=== PATIENT | male | born 1985 | race Caucasian/White ===

== ENCOUNTER 2021-11-19 | Outpatient (REF) | payer OTHER, SELFPAY ==
--- NOTE | ~2021-11-19 | XR_ITS ---
EXAMINATION: XR WRIST, LEFT CLINICAL INFORMATION: M25.532 - Pain in left wrist COMPARISON: 11/03/2021 TECHNIQUE: PA, lateral, and oblique views of the left wrist. FINDINGS: Again seen is a comminuted intra-articular fracture of the distal radius with apex dorsal angulation of the distal radial articular surface by approximately 15 degrees, unchanged. Mild soft tissue swelling. Transverse fracture at the base of the ulnar styloid is unchanged with mild displacement of the styloid fragment. No new fractures. Carpal bones are intact. Bone mineralization is normal. Joint spaces are well-preserved. XR/XR wrist LT min 3V IMPRESSION: Unchanged appearance of the distal radius and ulnar fractures. No new fracture.
== END 2021-11-19 00:01 | disposition home or self-care (01) ==
LOC: HO.HOSX
PROVIDERS: Visit Provider Physician Assistant
DX: S52.502A Unspecified fracture of the lower end of left radius, initial encounter for closed fracture (principal); V00.131A Fall from skateboard, initial encounter; Y93.51 Activity, roller skating (inline) and skateboarding; Y92.9 Unspecified place or not applicable; Y99.9 Unspecified external cause status
CPT/HCPCS: 29085; 73110

== ENCOUNTER 2021-12-17 08:03 | Outpatient (REF) | payer OTHER, SELFPAY ==
--- NOTE | ~2021-12-17 | XR_ITS ---
EXAMINATION: XR WRIST, LEFT CLINICAL INFORMATION: Fracture COMPARISON: Previous x-ray November 2021 TECHNIQUE: PA, lateral, and oblique views of the left wrist. FINDINGS: There is a healing fracture of the left distal radius with increased bony callus formation. Alignment appears unchanged. There is a minimally displaced ulnar styloid fracture that appears unchanged. Carpal bones are otherwise normal. There is soft tissue swelling. XR/XR wrist LT min 3V IMPRESSION: Healing left distal radius fracture.
== END 2021-12-17 08:04 | disposition home or self-care (01) ==
LOC: HO.HOSX 08:03
PROVIDERS: Visit Provider Physician Assistant
DX: M25.532 Pain in left wrist (principal)
CPT/HCPCS: 73110

== ENCOUNTER 2022-07-26 08:00 | Outpatient (RCR) | payer BC, SELFPAY ==
--- NOTE | 2022-08-02 08:23 | MHC.OT.DC ---
[address] [phone] F: [phone] Occupational Therapy Discharge Note Patient Name: nAkit Whitehead Provider: Sung Healy Diagnosis: Left wrist s/p ORIF Date of Surgery: 06/11/22 Date of Evaluation: 07/10/22 Date of Discharge: 08/02/22 Treatments to Date: 2 Cancellations to Date: 1 No Shows to Date: Discharge Status: Independent with HEP Patient Elected to Stop Discharge Summary: AROM WFL. Pt has been educated on precautions and progression of ther ex and functional activities. Pt reported discomfort only at the end of the day. Today he canceled , leaving a message he was all set Electronically Signed By: Jess Ballard OT CHT CLT Reviewed/agree with student documentation: Therapist: Please Sign and return to therapist, thank you for your referral.
== END 2022-08-02 08:24 | disposition home or self-care (01) ==
LOC: HO.OT 08:00
PROVIDERS: PCP Internal Medicine; Visit Provider Physician Assistant
DX: S52.502D Unspecified fracture of the lower end of left radius, subsequent encounter for closed fracture with routine healing (principal); Z98.890 Other specified postprocedural states
CPT/HCPCS: 97110; 97165